=== PATIENT | male | born 1940 | race Caucasian/White ===

== ENCOUNTER 2016-11-19 07:04 | Day surgery (SDC) | payer MEDICARE, BC ==
--- NOTE | ~2016-11-19 | EGD ---
EGD REPORT [facility] [address] [place]. [id number] NAME: RICK ESTRADA MD : 44 STATUS : [facility]#: [id number] AGE: 76 ADM/REG DATE : 11/19/16 MR#: [id number] REPORT SERV DATE: 11/19/16 DICTATED BY: EDDIE ASKEW DATE: 11/19/16 REPORT STATUS : Draft TRANSCRIBED BY: [facility] DATE: 11/19/16 Endoscopy Center Patient Name: Rick Estrada Date of : 1940 Attending MD: EDDIE ASKEW MD Procedure Date No Time: 11/19/2016 Procedure: Colonoscopy Indications: Screening in patient at increased risk: Family history of 1st-degree relative with colorectal cancer Referring MD: JORGE MCKEON MD Medicines: as per anesthesia Complications: No immediate complications. Procedure: Pre-Anesthesia Assessment: - ASA Grade Assessment: III - A patient with severe systemic disease. After I obtained informed consent, the scope was passed under direct vision. Throughout the procedure, the patient's blood pressure, pulse, and oxygen saturations were monitored continuously. The [facility] [id number] was introduced through the anus and advanced to the cecum, identified by appendiceal orifice and ileocecal valve. The colonoscopy was performed without difficulty. The patient tolerated the procedure. The quality of the bowel preparation was adequate to identify polyps. Findings: The perianal and digital rectal examinations were normal. A few small and large-mouthed diverticula were found in the sigmoid colon. Internal hemorrhoids were found during endoscopy and were mild. Impression: - Diverticulosis in the sigmoid colon. - Internal hemorrhoids. Recommendation: - Repeat colonoscopy in 5 years for surveillance. Procedure Code(s): --- Professional --- 10152, Colonoscopy, flexible, proximal to splenic flexure; diagnostic, with or without collection of specimen(s) by brushing or washing, with or without colon decompression (separate procedure) Diagnosis Code(s): --- Professional --- K64.8, Other hemorrhoids K57.30, Diverticulosis of large intestine without EGD REPORT [address] [place] [place] [id number] NAME: RICK ESTRADA MD : [birth year] STATUS : [facility] PAT#: [id number] AGE: 76 ADM/REG DATE : 11/19/16 MR#: [id number] REPORT SERV DATE: 11/19/16 DICTATED BY: EDDIE ASKEW DATE: 11/19/16 REPORT STATUS : Draft TRANSCRIBED BY: [employer] DATE: 11/19/16 perforation or abscess without bleeding Z12.11, Encounter for screening for malignant neoplasm of colon Z80.0, Family history of malignant neoplasm of digestive organs CPT copyright 2013 [employer]. All rights reserved. The codes documented in this report are preliminary and upon rubber compounder formulator review may be revised to meet current compliance requirements. EDDIE ASKEW MD 11/19/2016 9:24 AM This report has been signed electronically. Number of Addenda: 0 Note Initiated On: 11/19/2016 8:50 AM Scope Withdrawal Time 0 hours 6 minutes [address] [place] [address] [place] [id number]
[~2016-11-19 07:04] MED LIST: ASAB PO; AVAPRO300 MG PO; BENICAR40 PO; COLAZAL 750 MG750 MG OR; COLAZAL750 MG PO; COMBIGAN0.2 MG/0.5 OPH; ENTOCORT3 PO; FISH-EPA1000 MG PO; HYGROTON 25 MG25 MG PO; ISTALOL OPH; ISTALOL0.5 % OP; LIPITOR10 PO; LOP25 PO; MULTIPLE VIT PO; NEXIUM40 PO; OS500+D PO; REST15 PO; TRAVATAN OPH; TRAVATAN Z0.004 % OPH; VITAMIN D1000 UNI1 PO; VITAMIN D31000 UNIT PO; VITC500 PO; ZEAXANTHIN PO
== END 2016-11-19 23:59 | disposition home or self-care (01) ==
LOC: DMU 07:04
PROVIDERS: Internal Medicine Gastroenterology
PROC: 0DJD8ZZ Inspection of Lower Intestinal Tract, Via Natural or Artificial Opening Endoscopic (ICD-10-PCS; principal; 2016-11-19 08:00)
DX: Z12.11 Encounter for screening for malignant neoplasm of colon (principal); K64.8 Other hemorrhoids; K57.30 Diverticulosis of large intestine without perforation or abscess without bleeding